=== PATIENT | female | born 1995 | race American Indian/Alaskan Native ===

== ENCOUNTER 2018-08-18 23:14 | Emergency (ER) | payer SELFPAY ==
[2018-08-19 01:48] VITALS: BP 128/57
[2018-08-19] MEDS ORDERED: ULTRAM PO ONE (05:50)
[2018-08-19 06:28] LABS: HCG Qualitative,Urine Negative (Negative)
[2018-08-19 06:29] LABS: Bilirubin,Urine NEG (Negative); Blood,Urine LG (Negative); Color,Urine Yellow (Yellow); Mucus,Urine 3+ /HPF; Protein,Urine <15 mg/dL mg/dL (Negative); Urobilinogen,Urine < 2.0 mg/dL (<2.0)
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
== END 2018-08-19 08:05 ==
LOC: EDSEX → ED 23:14
DX: M79.10 Myalgia, unspecified site (principal); R42 Dizziness and giddiness; R11.10 Vomiting, unspecified; Z53.21 Procedure and treatment not carried out due to patient leaving prior to being seen by health care provider
CPT/HCPCS: 70450; 72125; 81001; 81025